=== PATIENT | male | born 2000 | race Caucasian/White ===

== ENCOUNTER 2020-03-14 19:00 | Emergency (ER) | payer OTHER ==
[~2020-03-14] VITALS: Ht 170.2 cm; Wt 54.4 kg
[~2020-03-14 19:00] MED LIST: AMOCLA400S PO; CEPH125SU PO; ONDA4ODT MM; PERM5TC TOP; RXONDA4ODT MM; Ultram50 MG PO
== END 2020-03-14 21:16 | disposition home or self-care (01) ==
LOC: ER 19:00
DX: S91.112A Laceration without foreign body of left great toe without damage to nail, initial encounter (principal); W45.8XXA Other foreign body or object entering through skin, initial encounter
CPT/HCPCS: 12001; 90714; 99283-25